=== PATIENT | female | born 1985 | race Caucasian/White ===

== ENCOUNTER 2017-03-22 01:26 | Observation (INO) | payer OTHER ==
[~2017-03-22] VITALS: Ht 171.4 cm; Wt 98.2 kg
--- NOTE | ~2017-03-22 | CO ---
Unit #: [id number] #: [id number] Patient: AUQILES HUNT [id number] [facility]. [place], [place] [address] [id number] MR#: [id number] NAME: AQUILES HUNT ROOM: 304 Age: 31 Sex: F Admission Date: 03/22/2017 : 1985 Attending Physician: Boy Coronado M.D. Primary Care Physician: No Primary Care Physician Consultation Date: 03/22/2017 CONSULTATION REPORT HISTORY Ms. Hunt is a 31-year-old female who presented to [facility] Emergency Room with complaints of colicky left abdominal and flank pain with hematuria for 24 hours. Due to increasing discomfort, she went to the emergency room. In the emergency room she underwent CT scan. CT scan showed a left ureteral stone at the left ureteral bladder function but no hydronephrosis. There was a question of some stranding around the appendix, so she was diagnosed with appendicitis and transferred to [facility]. Today, the patient does not have any right-sided abdominal pain, denies any nausea or vomiting, fever or chills, and again, she has not had any right-sided abdominal pain. She does have a past medical history of kidney stones requiring surgery by Dr. Jeff Gilmore in the past. PAST MEDICAL HISTORY x3, Lap-Band surgery, previous right ureteral stone, tonsillectomy, adenoidectomy, tubal ligation. She has a history of headaches over the last several months and has been referred to neurology. ALLERGIES Povidone iodine, Betadine solution. FAMILY HISTORY Kidney cancer and brain cancer. SOCIAL HISTORY Denies the use of tobacco, alcohol or drugs. She has 3 children ranging in ages from 5 to 15. She works as a town clerk. REVIEW OF SYSTEMS No fevers, chills, nausea, vomiting, hematemesis, hematochezia, melena or diarrhea. The patient states she has seen blood in her urine over the last 24 hours. PHYSICAL EXAMINATION VITAL SIGNS: Temperature is 97.8, pulse 52 and regular, respirations 16, blood pressure 102/54. GENERAL: She is awake, alert and oriented. HEENT: No scleral icterus. CARDIAC: Regular rate and rhythm. LUNGS: Clear. Unit #: [id number] #: [id number] Patient: CARBY,AQUILES ABDOMEN: She guards in the left flank and pelvis with no rigidity or rebound. EXTREMITIES: No clubbing, cyanosis or edema. NEUROLOGIC: Grossly intact. DIAGNOSTIC STUDIES LABORATORY: Urinalysis is positive for blood on dipstick. Microscopic shows 10-20 red cells, no white cells; otherwise, negative urinalysis. Comprehensive metabolic panel is normal. White count is 5,200, normal differential. Hemoglobin 11.5. IMAGING: CT scan - Left ureteral stone at the UV junction. There is questionable stranding around the appendix. No fecalith is seen. ASSESSMENT AND PLAN 1. Patient with left colicky flank pain radiating down into the pelvis and up into the flank with associated hematuria. CT scan shows a ureteral stone but no hydronephrosis. At this time I am going to increase her fluid rate, strain her urine and add Toradol and request Dr. Gilmore to see the patient at his convenience. 2. There is no clinical evidence of appendicitis. I will recheck her labs and follow the patient. Clinically, again, there is no historical or physical exam evidence of appendicitis. Dictated by... Denis Holder/mohan TD: 03/22/2017 07:34 JOB #: [id number] CONSULTATION REPORT Page 1 of 1 X Boy Coronado MD CONSULTATION REPORT
[~2017-03-22 01:26] MED LIST: CIPRO PO; HYDROCODON-ACE1 EAC9 PO; NO MEDICATIONS; PYRIDIUM PO
[2017-03-22 08:29] LABS: HEMATOCRIT 31.5 % (35.0-45.0); HEMOGLOBIN 10.4 gm/dL (12.0-16.0); MEAN CELL VOLUME 87.4 FL (83-96); MEAN CORPUSCULAR HEMOGLOBIN 28.8 PG (28-34); MEAN CORPUSCULAR HGB CONC 32.9 g/dL (30-36); MEAN PLATELET VOLUME 8.3 FL (6.5-11.5); RED BLOOD COUNT 3.6 X10e (3.90-5.30)
[2017-03-22 09:01] LABS: BUN/CREATININE RATIO 14.28; CALCIUM SERUM 8.2 mg/dL (8.4-10.2); CREATININE SERUM 0.7 mg/dL (0.6-1.4); GLOM FILT RATE Estimated 114.6 mL/min (>60); MAGNESIUM 1.9 mg/dL (1.6-3.0); POTASSIUM 3.4 mmol/L (3.5-5.1)
== END 2017-03-22 11:18 | disposition home or self-care (01) ==
LOC: C3A PCU 01:29 → UNDOADMIN 01:29 → C3A PCU 02:00
PROVIDERS: Specialist
DX: N20.1 Calculus of ureter (principal); R31.9 Hematuria, unspecified; Z98.84 Bariatric surgery status
CPT/HCPCS: 80048; 83735; 85027; 96374; C9113; G0378; J1885; J2270; J2405